=== PATIENT | female | born 1950 ===

== ENCOUNTER 2017-10-16 16:18 | Emergency (ER) | payer MEDICARE, MEDICAID ==
[2017-10-16 17:08] VITALS: BP 128/84; PULSE 83; RESP 18; TEMP 98.6; O2SAT 99
--- NOTE | 2017-10-16 18:19 | ED PDOC ---
Lower Extremity Pain/Injury Time Seen by Provider: 10/16/17 17:40 Chief Complaint (Nursing): Lower Extremity Problem/Injury Chief Complaint (Provider): Left Foot Swelling and Rash History Per: Patient History/Exam Limitations: no limitations Onset/Duration Of Symptoms: Days (x1) Current Symptoms Are (Timing): Still Present Severity: None Additional Complaint(s): 66 year old female presenting with rash an dswelling to her left lower extremity. Patient states that the rash is not new but she developed the swelling yesterday. Denies pain. PMD: Tres Massey Past Medical History Reviewed: Historical Data, Nursing Documentation, Vital Signs Vital Signs: Last Vital Signs Temp 98.6 F 10/16/17 17:05 Pulse 83 10/16/17 17:05 Resp 18 10/16/17 17:05 BP 128/84 10/16/17 17:05 Pulse Ox 99 10/16/17 17:05 - Medical History PMH: Bronchitis, HTN, Hypothyroidism - Surgical History Surgical History: No Surg Hx - Family History Family History: States: Unknown Family Hx - Living Arrangements Living Arrangements: With Family - Social History Current smoker - smoking cessation education provided: No Ex-Smoker (has not smoked in the last 12 months): No Alcohol: None Drugs: Denies - Home Medications Home Medications: Ambulatory Orders Medication Instructions Recorded Albuterol 0.083% [Albuterol 0.083% 2.5 mg IH Q8 PRN #100 neb 11/07/16 Inhal Desiree (2.5 mg/3 ml) UD] Azithromycin [Zithromax] 1 tab PO DAILY #6 tab 11/07/16 Mask, Face [Nebulizer Aerosol Mask 1 dev XX PRN PRN #1 dev 11/07/16 Adult] Nebulizer [Aeroeclipse II] 1 each MC Q8 PRN #1 each 11/07/16 Promethazine/Codeine 5 ml PO Q12 PRN #100 ml 11/07/16 [Codeine/Promethazine 10 MG/5 Ml-6.25 MG/5 Ml] predniSONE [predniSONE Tab] 2 tab PO DAILY #8 tab 11/07/16 Mupirocin 2% Ointment [Bactroban 0.5 gm EXT BID #1 tube 10/16/17 Ointment] - Allergies Allergies/Adverse Reactions: Allergies Allergy/AdvReac Type Severity Reaction Status Date / Time No Known Allergies Allergy Verified 11/07/16 18:10 Review of Systems Musculoskeletal: Positive for: Other (left foot swelling). Negative for: Foot Pain Skin: Positive for: Rash (left foot) Physical Exam - Reviewed Nursing Documentation Reviewed: Yes Vital Signs Reviewed: Yes - Physical Exam Appears: Positive for: No Acute Distress Skin: Positive for: Normal Color, Warm, Dry. Negative for: Rash Eye Exam: Positive for: Normal appearance, EOMI, PERRL Extremity: Positive for: Normal ROM ( left foot), Other (Scaly rash with crusty discharge noted on left foot). Negative for: Tenderness, Deformity, Swelling Neurologic/Psych: Positive for: Alert, Oriented - ECG O2 Sat by Pulse Oximetry: 99 (RA) Pulse Ox Interpretation: Normal Medical Decision Making Medical Decision Makin Initial Impression 66 y/o female presenting with left foot swelling and rash Initial Plan: * RAD lft foot 3 views * Reevaluation Documented by Yoli Singer acting as a scribe for Marielos De La Rosa PA-C. All medical record entries made by the Scribe were at my direction and personally dictated by me. I have reviewed the chart and agree that the record accurately reflects my personal performance of the history, physical exam, medical decision making, and the department course for this patient. I have also personally directed, reviewed, and agree with the discharge instructions and disposition. Disposition - Clinical Impression Clinical Impression: Wound infection - Disposition Referrals: [facility] [Outside] Korey Vanegas MD [Staff Provider] - Madison Mann DPM [Staff Provider] - Condition: FAIR Additional Instructions: PUEDE HACER AMILCAR REUBEN DR. MANN EN LA OFICINA DE ERNESTINAZOLINI SI QUEIRE Prescriptions: Mupirocin 2% Ointment [Bactroban Ointment] 0.5 gm EXT BID #1 tube Instructions: Impetigo (ED) Forms: [employer] (Czech) Print Language: LITHUANIAN
== END 2017-10-16 18:39 | disposition home or self-care (01) ==
LOC: H.ER 16:18
DX: L08.9 Local infection of the skin and subcutaneous tissue, unspecified (principal); E03.9 Hypothyroidism, unspecified; I10 Essential (primary) hypertension